=== PATIENT | male | born 1950 | race Hispanic/Latino ===

== ENCOUNTER 2020-07-24 17:58 | Inpatient (IN) | payer MEDICARE, OTHER ==
[~2020-07-24] VITALS: Ht 167.6 cm; Wt 127.0 kg
[2020-07-24 18:22] LABS: BASOPHILS % (AUTO) 0.5 % (0.0-5.0); HEMATOCRIT 49.3 % (42-54); LYMPHOCYTES % (AUTO) 10.3 % (21.0-51.0); MEAN CORPUSCULAR HEMOGLOBIN 30.6 pg (27.0-33.0); MEAN CORPUSCULAR HGB CONC 33.7 g/dL (32.0-36.0); MEAN CORPUSCULAR VOLUME 90.8 fL (79-99); MONOCYTES % (AUTO) 4.8 % (3.0-13.0); NEUTROPHILS % (AUTO) 82.3 % (40.0-77.0); NUCLEATED RED BLOOD CELLS 1.8 % (0.0-0.19); PLATELET COUNT (AUTO) 160 K/uL (130-400); RED BLOOD CELL COUNT(AUTO) 5.43 MIL/uL (4.50-6.20); RED CELL DISTRIBUTION WIDTH 13.8 % (11.0-15.5); WHITE BLOOD COUNT (AUTO) 13.1 K/uL (4.8-10.8)
[2020-07-24 18:30] LABS: CREATININE 2.2 mg/dL (0.5-1.5); POTASSIUM 4.2 mmol/L (3.5-5.1)
[2020-07-24 18:33] LABS: INR 1.07 (0.85-1.15); PARTIAL THROMBOPLASTIN TIME 26.3 SEC (26.3-35.5); PROTHROMBIN TIME 11.5 SEC (9.6-11.6)
[2020-07-24 18:35] LABS: ALBUMIN 2.6 g/dL (3.5-5.0); TOTAL PROTEIN, SERUM 7.8 g/dL (6.0-8.3)
[2020-07-24 18:41] LABS: ABG BASE EXCESS -7.7 mmol/L (-2.0-3.0); ABG HCO3 15.3 mmol/L (21.0-28.0); ABG PCO2 26 mmHg (35-48)
[2020-07-24] MEDS ORDERED: DEXAMETHASONE SOD PHOSPHATE 10MG/ML 1ML VIAL ONE (19:19)
[2020-07-24] MEDS ORDERED: ASPIRIN 325 MG TABLET ONE (19:20)
[2020-07-24] MEDS ORDERED: CEFTRIAXONE SODIUM 2 GM VIAL ONE (19:20)
[2020-07-24] MEDS ORDERED: AZITHROMYCIN 500MG+NS 250ML 250 ML IV ONE (19:20)
[2020-07-24] MEDS ORDERED: ERGOCALCIFEROL (VITAMIN D2) 50,000 UNIT CAPSULE PO ONE (20:30)
[2020-07-24] MEDS ORDERED: ACETAMINOPHEN 325 MG TAB PO PRN ×2 (20:30)
[2020-07-24] MEDS ORDERED: ALBUTEROL INHALER 90MCG/INH IH PRN (20:30)
[2020-07-24] MEDS ORDERED: DEXTROSE 50%-WATER 50 ML DISP.SYRIN IV PRN (20:30)
[2020-07-24] MEDS ORDERED: CEFTRIAXONE SODIUM 1 GM IV SCH (20:30)
[2020-07-24] MEDS ORDERED: LACTULOSE 20 GM/30 ML UDCUP PO PRN (20:30)
[2020-07-24] MEDS ORDERED: DEXAMETHASONE SOD PHOSPHATE 4 MG/ML 1ML VIAL IVP SCH (20:30)
[2020-07-24] MEDS ORDERED: AZITHROMYCIN 500MG+NS 250ML 250 ML IV SCH (20:30)
[2020-07-24] MEDS ORDERED: GLUCAGON 1MG KIT 1 MG ML IM PRN (20:30)
[2020-07-24] MEDS ORDERED: ONDANSETRON HCL 4 MG/2 ML VIAL IV PRN (20:30)
[2020-07-24] MEDS: PHARMACY COMMUNICATION**REMDESIVIR ORDER MISC SCH (20:30)
[2020-07-24 20:50] LABS: CRP QUANTITATIVE 133.2 mg/L (0.00-9.0)
[2020-07-24] MEDS: INSULIN HUMULIN R 100 UNIT/ML 3ML SQ SCH (21:00)
[2020-07-24] MEDS ORDERED: FUROSEMIDE 10 MG/ML 2ML VIAL ONE (21:29)
[2020-07-25] VITALS (32 sets, daily range): BP systolic 75–111; BP diastolic 22–72
--- NOTE | 2020-07-25 00:15 | NUR ---
At 0015 doctor will proceed to do elective intubation . Addendum: 07/25/20 at 0334 by ERENDIRA GALE RT Amended: Links added.
[2020-07-25] MEDS ORDERED: FENTANYL 2500MCG+NS 250ML 250 ML IV ONE ×2 (00:38→12:26)
[2020-07-25] MEDS ORDERED: MIDAZOLAM HCL 5 MG/ML 2ML VIAL IV ONE (00:46)
[2020-07-25 00:47] LABS: BASOPHILS % (AUTO) 0.6 % (0.0-5.0); HEMATOCRIT 50.2 % (42-54); LYMPHOCYTES % (AUTO) 12.7 % (21.0-51.0); MEAN CORPUSCULAR HEMOGLOBIN 29.9 pg (27.0-33.0); MEAN CORPUSCULAR HGB CONC 32.3 g/dL (32.0-36.0); MEAN CORPUSCULAR VOLUME 92.8 fL (79-99); MONOCYTES % (AUTO) 4.7 % (3.0-13.0); NEUTROPHILS % (AUTO) 79.9 % (40.0-77.0); NUCLEATED RED BLOOD CELLS 1.4 % (0.0-0.19); PLATELET COUNT (AUTO) 125 K/uL (130-400); RED BLOOD CELL COUNT(AUTO) 5.41 MIL/uL (4.50-6.20); RED CELL DISTRIBUTION WIDTH 13.7 % (11.0-15.5); WHITE BLOOD COUNT (AUTO) 14.8 K/uL (4.8-10.8)
[2020-07-25] MEDS ORDERED: SODIUM CHLORIDE 0.9% 100 ML IV ONE ×6 (00:47→10:34)
[2020-07-25] MEDS ORDERED: SODIUM CHLORIDE 0.9% 50 ML IV ONE ×2 (00:49→02:39)
[2020-07-25 00:55] LABS: CREATININE 2.6 mg/dL (0.5-1.5); POTASSIUM 5.2 mmol/L (3.5-5.1)
[2020-07-25 00:59] LABS: ALBUMIN 2.5 g/dL (3.5-5.0); TOTAL PROTEIN, SERUM 7.8 g/dL (6.0-8.3)
[2020-07-25] MEDS ORDERED: DILTIAZEM HCL 125 MG/25 ML VIAL IV ONE ×2 (01:04→07:51)
[2020-07-25 01:12] LABS: APPEARANCE,URINE Turbid (CLEAR); BILIRUBIN,URINE Small (NEGATIVE); COLOR,URINE Dark Yellow (YELLOW); GLUCOSE, URINE (UA) Negative (NEGATIVE); KETONES,URINE Trace mg/dL (NEGATIVE); LEUKOCYTE ESTERASE ,URINE Large (NEGATIVE); NITRATE,URINE Positive (NEGATIVE); OCCULT BLOOD,URINE Large (NEGATIVE); PROTEIN,URINE POS 2+ mg/dL (NEGATIVE)
[2020-07-25 01:15] LABS: ABG BASE EXCESS -11.5 mmol/L (-2.0-3.0); ABG HCO3 17.2 mmol/L (21.0-28.0); ABG OXYGEN SATURATION 80.8 % (95.0-99.0); ABG PCO2 50 mmHg (35-48)
[2020-07-25] MEDS ORDERED: PROPOFOL 1000 MG/100 ML 100 ML IV ONE (01:24)
[2020-07-25] MEDS ORDERED: SODIUM BICARB 50MEQ 50ML VIAL 100 ML ONE (01:24)
[2020-07-25 01:27] LABS: WBC,URINE 26-50 /HPF (0-1)
[2020-07-25 01:28] LABS: BACTERIA,URINE Moderate /HPF (None Seen); MUCUS,URINE Moderate LPF (None Seen); SQUAMOUS EPITHELIAL CELL,UR Few /HPF (0-2)
[2020-07-25] MEDS ORDERED: NOREPINEPHRINE 4MG/NS 250ML 250 ML IV ONE ×2 (02:30→05:50)
[2020-07-25] MEDS ORDERED: VECURONIUM BROMIDE 10 MG ML IV ONE (02:40)
[2020-07-25] MEDS: PHARMACY COMMUNICATION**REMDESIVIR ORDER MISC SCH ×3 (04:30→20:30)
[2020-07-25 07:10] LABS: BASOPHILS % (AUTO) 0.7 % (0.0-5.0); HEMATOCRIT 52.3 % (42-54); LYMPHOCYTES % (AUTO) 8.7 % (21.0-51.0); MEAN CORPUSCULAR HEMOGLOBIN 29.3 pg (27.0-33.0); MEAN CORPUSCULAR HGB CONC 30.4 g/dL (32.0-36.0); MEAN CORPUSCULAR VOLUME 96.5 fL (79-99); MONOCYTES % (AUTO) 4.8 % (3.0-13.0); NEUTROPHILS % (AUTO) 82.9 % (40.0-77.0); NUCLEATED RED BLOOD CELLS 3.8 % (0.0-0.19); PLATELET COUNT (AUTO) 135 K/uL (130-400); RED BLOOD CELL COUNT(AUTO) 5.42 MIL/uL (4.50-6.20); RED CELL DISTRIBUTION WIDTH 14.2 % (11.0-15.5); WHITE BLOOD COUNT (AUTO) 16.5 K/uL (4.8-10.8)
[2020-07-25 07:28] LABS: ALBUMIN 2.4 g/dL (3.5-5.0); BILIRUBIN,TOTAL 0.8 mg/dL (0.2-1.0); CREATININE 3.5 mg/dL (0.5-1.5); POTASSIUM 5.6 mmol/L (3.5-5.1); TOTAL PROTEIN, SERUM 7.4 g/dL (6.0-8.3)
[2020-07-25] MEDS: INSULIN HUMULIN R 100 UNIT/ML 3ML SQ SCH ×4 (07:30→23:08)
[2020-07-25 07:35] LABS: CRP QUANTITATIVE 221.6 mg/L (0.00-9.0)
[2020-07-25] MEDS ORDERED: DILTIAZEM 125MG+100 ML NS 125 ML IV PRN (07:45)
[2020-07-25] MEDS ORDERED: VECURONIUM 50MG/NS 50ML IV SCH ×2 (07:45)
[2020-07-25] MEDS ORDERED: NOREPINEPHRINE 4MG/NS 250ML 250 ML IV PRN (07:45)
[2020-07-25] MEDS ORDERED: NOREPINEPHRINE BITARTRATE 1 MG/1 ML ML IV ONE (07:46)
[2020-07-25] MEDS ORDERED: SODIUM CHLORIDE 0.9% 250 ML IV ONE (07:47)
[2020-07-25 08:09] LABS: ABG HCO3 16.8 mmol/L (21.0-28.0); ABG OXYGEN SATURATION 98.6 % (95.0-99.0); ABG PCO2 72 mmHg (35-48)
[2020-07-25] MEDS ORDERED: SODIUM BICARB 50MEQ 50ML VIAL 50 ML ONE (08:26)
[2020-07-25] MEDS ORDERED: INSULIN HUMULIN R 100 UNIT/ML 3ML ONE ×2 (08:27→10:30)
[2020-07-25] MEDS ORDERED: SODIUM BICARB 8.4% 50ML SYRINGE IVP SCH (08:28)
[2020-07-25] MEDS ORDERED: INSULIN HUMULIN R 100 UNIT/ML 3ML SQ SCH (08:30)
[2020-07-25] MEDS ORDERED: CALCIUM CHLORIDE 100 MG/ML 10 ML SYG IVP SCH (08:30)
[2020-07-25] MEDS ORDERED: ENOXAPARIN SODIUM 40 MG/0.4 ML SYRINGE SQ SCH (09:00)
[2020-07-25] MEDS: ENOXAPARIN SODIUM 120 MG/0.8ML SQ SCH ×2 (09:00→22:29)
[2020-07-25] MEDS ORDERED: ASCORBIC ACID 500 MG TAB PO SCH (09:00)
[2020-07-25] MEDS ORDERED: FAMOTIDINE/PF 20 MG/2 ML VIAL IV SCH (09:00)
[2020-07-25] MEDS ORDERED: ZINC SULFATE 220 CAPSULE PO SCH (09:00)
[2020-07-25] MEDS ORDERED: ENOXAPARIN SODIUM 1 MG/KG SQ SCH (09:00)
[2020-07-25] MEDS ORDERED: PHENYLEPHRINE HCL 10 MG in SODIUM CHLORIDE 0.9% 250 ML IV SCH (09:27)
[2020-07-25] MEDS: LINEZOLID 600 MG/ISO-OSM 300 ML IV SCH ×2 (09:30→22:20)
[2020-07-25] MEDS: MEROPENEM 500 MG VIAL IVP SCH ×2 (09:30→22:20)
[2020-07-25] MEDS ORDERED: RENAL DOSE IV PRN (09:30)
[2020-07-25] MEDS ORDERED: SODIUM BICARB 50MEQ 50ML VIAL 150 ML ONE (09:58)
[2020-07-25] MEDS: SODIUM BICARB IV SCH ×2 (10:30→22:00)
[2020-07-25] MEDS: STERILE WATER IV SCH ×2 (10:30→22:00)
[2020-07-25] MEDS ORDERED: VASOPRESSIN 20 UNITS/ML 1ML VIAL ONE (10:31)
[2020-07-25] MEDS ORDERED: LIDOCAINE HCL 1% 20 ML VIAL ONE (10:37)
[2020-07-25] MEDS ORDERED: TOCILIZUMAB IV STA (11:20)
[2020-07-25] MEDS ORDERED: SODIUM CHLORIDE 0.9% IV STA (11:20)
[2020-07-25 11:34] LABS: ABG BASE EXCESS -5.4 mmol/L (-2.0-3.0); ABG HCO3 22.1 mmol/L (21.0-28.0); ABG OXYGEN SATURATION 83.8 % (95.0-99.0); ABG PCO2 51 mmHg (35-48)
[2020-07-25 12:51] LABS: HEMOGLOBIN A1C 7.4 % (4.0-6.0)
[2020-07-25 12:53] LABS: % IRON SATURATION 22.5 % (30-44)
[2020-07-25 12:54] LABS: CHOLESTEROL 95 mg/dL (<200); HDL CHOLESTEROL 76 mg/dL (29-71); LDL DIRECT 43 mg/dL (0-99); TRIGLYCERIDES 205 mg/dL (30-200)
[2020-07-25] MEDS ORDERED: MIDAZOLAM 100MG-0.9% NS 100ML 100 ML IV SCH (13:00)
[2020-07-25] MEDS ORDERED: ALBUMIN (HUMAN) 25% 200 ML IV ONE (13:40)
[2020-07-25] MEDS ORDERED: HEPARIN SODIUM/PF 100UNIT/ML 5ML SYRINGE IV ONE (13:51)
[2020-07-25] MEDS ORDERED: PHENYLEPHRINE HCL 50 MG in SODIUM CHLORIDE 0.9% 250 ML IV SCH (15:45)
--- NOTE | 2020-07-25 16:53 | NUR ---
Assessment: Received Pt from ER at this time. Neuro- sedated with Fentanyl 50mcg/hr and Versed 3mg/hr, pupil 2mm fixed, no corneal reflex and absent gag reflex. Cardiac-SR, on Neosynephrine drip 1mcg/kg/min, and Vaso 0.04u/min, hypotensive SBP in 70's and DBP in 30's. Respiratory- intubated 26 at the lip, ETT size 8.0, vent setting AC/VC 80%, TV 350, Peep 12 and rate of 50, maintaining SpO2 of 94%. NG to right nare present. GI- hypoactive in all quadrant. - sequeira 16F, 0ml output. Skin- Cold, with temp of 95.1F, thong hugger in placed, skin intact. Lines- RIJ hemodialysis cath and R femoral triple lumen, X3 PIV to right arm, X1 PIV to left arm. Drips: Vaso 0.04 U/min Jack 1mcg/kg/min Fentanyl 50mcg/hr Versed 3mg/hr Bicarb drip 100ml/hr
--- NOTE | 2020-07-25 17:09 | NUR ---
INITIAL SW spoke with patient's spouse, Wendy Allison. Patient lives with spouse. No home services. DME: [employer]PM, rollator, cane, glucometer (no insulin). Tracy is able to complete ADL's independent and drives. PCP is Dr. Madhuri Orozco. Pharmacy is [facility] in [place]. No safety concerns regarding patient returning home. DCP is home. Addendum: 07/25/20 at 1712 by JANICE PAUL SS Amended: Links added.
[2020-07-25] MEDS ORDERED: VASOPRESSIN 40 UNITS in SODIUM CHLORIDE 0.9% 40 ML IV SCH (18:30)
[2020-07-25] MEDS: DEXAMETHASONE SOD PHOSPHATE 4 MG/ML 1ML VIAL IVP SCH (22:19)
[2020-07-26 01:00] VITALS: BP 123/74
[2020-07-26] MEDS ORDERED: SODIUM CHLORIDE 0.9% 250 ML IV ONE (03:44)
[2020-07-26] MEDS ORDERED: PHENYLEPHRINE HCL 10 MG/ML 1ML VIAL IV ONE ×2 (03:44→03:49)
[2020-07-26] MEDS: PHARMACY COMMUNICATION**REMDESIVIR ORDER MISC SCH (03:57)
[2020-07-26] MEDS: DEXAMETHASONE SOD PHOSPHATE 4 MG/ML 1ML VIAL IVP SCH (04:25)
[2020-07-26 06:07] LABS: BASOPHILS % (AUTO) 0.4 % (0.0-5.0); HEMATOCRIT 42.7 % (42-54); LYMPHOCYTES % (AUTO) 4.1 % (21.0-51.0); MEAN CORPUSCULAR HEMOGLOBIN 29.2 pg (27.0-33.0); MEAN CORPUSCULAR VOLUME 97.3 fL (79-99); MONOCYTES % (AUTO) 3.1 % (3.0-13.0); NEUTROPHILS % (AUTO) 88.7 % (40.0-77.0); NUCLEATED RED BLOOD CELLS 7.6 % (0.0-0.19); PLATELET COUNT (AUTO) 55 K/uL (130-400); RED BLOOD CELL COUNT(AUTO) 4.39 MIL/uL (4.50-6.20); RED CELL DISTRIBUTION WIDTH 14.7 % (11.0-15.5); WHITE BLOOD COUNT (AUTO) 16.3 K/uL (4.8-10.8)
[2020-07-26] MEDS: INSULIN HUMULIN R 100 UNIT/ML 3ML SQ SCH (06:17)
[2020-07-26 06:35] LABS: ALBUMIN 2.8 g/dL (3.5-5.0); BILIRUBIN,TOTAL 2.6 mg/dL (0.2-1.0); CREATININE 4.7 mg/dL (0.5-1.5); POTASSIUM 5.8 mmol/L (3.5-5.1); TOTAL PROTEIN, SERUM 6.2 g/dL (6.0-8.3)
[2020-07-26 07:01] LABS: CRP QUANTITATIVE 240.5 mg/L (0.00-9.0)
[2020-07-26 08:00] VITALS: BP 100/40
[2020-07-26] MEDS ORDERED: CALCIUM GLUCONATE 1 GM in SODIUM CHLORIDE 0.9% 100 ML IV SCH (08:45)
[2020-07-26] MEDS ORDERED: CALCIUM GLUCONATE 1 GM/10 ML VIAL IV SCH (08:45)
[2020-07-26 09:00] VITALS: BP 104/61
--- NOTE | 2020-07-26 09:00 | NUR ---
Communication to family: Dr. Rose spoke to Pt's Wendy Allison, she requested for withdraw of care, Dr. Rose explained withdraw of care, and process that involves with the request, Pt's spouse verbalized understanding, consent was obtained via phone, signed by Dr. Rose and witness by this nurse.
[2020-07-26] MEDS ORDERED: MORPHINE SULFATE 4 MG/1ML SYG ONE (09:44)
[2020-07-26] MEDS ORDERED: ONDANSETRON HCL 4 MG/2 ML VIAL IVP PRN (09:45)
[2020-07-26] MEDS ORDERED: ACETAMINOPHEN 325 MG TAB PO PRN (09:45)
[2020-07-26] MEDS ORDERED: HALOPERIDOL 1 MG TABLET PO PRN (09:45)
[2020-07-26] MEDS ORDERED: MORPHINE SULFATE 2 MG/ML 1ML SYG IM PRN (09:45)
[2020-07-26] MEDS ORDERED: ATROPINE SULFATE 5 ML DROPS PO PRN (09:45)
[2020-07-26] MEDS ORDERED: GLYCOPYRROLATE 1 MG/5 ML SYRINGE IV PRN (09:45)
[2020-07-26] MEDS ORDERED: ARTIFICAL TEARS SOL 15 ML OU PRN (09:45)
[2020-07-26] MEDS ORDERED: LORAZEPAM 1 MG TABLET PO PRN (09:45)
[2020-07-26] MEDS ORDERED: SCOPOLAMINE HYDROBROMIDE 1 EACH ADH..PATCH TD SCH (09:45)
[2020-07-26] MEDS ORDERED: LORAZEPAM 2 MG/ML 1 ML VIAL ONE (09:45)
[2020-07-26] MEDS ORDERED: MORPHINE SULFATE 20MG/ML ORAL 0.25 ML PO PRN (09:45)
[2020-07-26] MEDS ORDERED: LORAZEPAM 2 MG/ML 1 ML VIAL IM PRN (09:45)
--- NOTE | 2020-07-26 10:39 | NUR ---
TOD: Pt terminally extubated at 0938, assisted by Damian MONROE, Morphine was given after extubation. TOD 1003, asystole per cardiac strip. 1020-Notified family 1019-Notified Dr. Rose 1009-Notified 1010- Notified consulting 1010- Called [facility], spoke to Liliya Bowers, Pt did not qualified for organ donation due to age and medical history.
[2020-07-27 08:14] LABS: HEPATITIS Bs ANTIGEN SCREEN P Negative (Negative)
== END 2020-07-26 10:03 | disposition expired | DRG 871 ==
LOC: EDH 17:58 → EDHIP 20:22 → 2BH 07-25 16:20
PROVIDERS: ADMIT Family Medicine; ATTEND Family Medicine
PROC: 5A09357 Assistance with Respiratory Ventilation, Less than 24 Consecutive Hours, Continuous Positive Airway Pressure (ICD-10-PCS; 2020-07-24)
PROC: 5A12012 Performance of Cardiac Output, Single, Manual (ICD-10-PCS; principal; 2020-07-25)
PROC: 5A1D70Z Performance of Urinary Filtration, Intermittent, Less than 6 Hours Per Day (ICD-10-PCS; 2020-07-25)
PROC: 02HV33Z Insertion of Infusion Device into Superior Vena Cava, Percutaneous Approach (ICD-10-PCS; 2020-07-25)
PROC: B548ZZA Ultrasonography of Superior Vena Cava, Guidance (ICD-10-PCS; 2020-07-25)
PROC: 5A1945Z Respiratory Ventilation, 24-96 Consecutive Hours (ICD-10-PCS; 2020-07-25)
PROC: 0BH17EZ Insertion of Endotracheal Airway into Trachea, Via Natural or Artificial Opening (ICD-10-PCS; 2020-07-25)
PROC: 5A09357 Assistance with Respiratory Ventilation, Less than 24 Consecutive Hours, Continuous Positive Airway Pressure (ICD-10-PCS; 2020-07-25)
PROC: 06HY33Z Insertion of Infusion Device into Lower Vein, Percutaneous Approach (ICD-10-PCS; 2020-07-25)
PROC: B54BZZA Ultrasonography of Right Lower Extremity Veins, Guidance (ICD-10-PCS; 2020-07-25)
DX: A41.89 Other specified sepsis (principal); U07.1 COVID-19; J12.89 Other viral pneumonia; J96.01 Acute respiratory failure with hypoxia; K72.00 Acute and subacute hepatic failure without coma; R65.21 Severe sepsis with septic shock; J96.02 Acute respiratory failure with hypercapnia; N17.0 Acute kidney failure with tubular necrosis; E87.4 Mixed disorder of acid-base balance; I46.9 Cardiac arrest, cause unspecified; D89.839 Cytokine release syndrome, grade unspecified; E11.9 Type 2 diabetes mellitus without complications; E87.5 Hyperkalemia; Z99.2 Dependence on renal dialysis; E03.9 Hypothyroidism, unspecified; E78.5 Hyperlipidemia, unspecified; I10 Essential (primary) hypertension; I48.0 Paroxysmal atrial fibrillation; Z66 Do not resuscitate; Z86.73 Personal history of transient ischemic attack (TIA), and cerebral infarction without residual deficits
CPT/HCPCS: 31500; 36415; 36600; 71045; 80053; 80061; 81001; 82435; 82728; 82803; 82947; 82948; 83036; 83540; 83550; 83605; 83615; 83880; 84132; 84145; 84295; 84484; 85018; 85025; 85378; 85610; 85730; 86140; 86701; 86704; 86706; 86900; 86901; 87040; 87071; 87077; 87088; 87186; 87205; 87340; 87390; 87426; 87520; 87804; 90935; 92950; 93005; 93970; 94002; 94003; 94660; G0378; J0456; J0610; J0696; J1100; J1642; J1650; J1815; J1940; J2020; J2060; J2185; J2250; J2270; J2370; J2704; J3010; J3490; J7050; P9046